=== PATIENT | male | born 1950 | race Hispanic/Latino ===

== ENCOUNTER → 2019-12-30 | Outpatient (CLI) | payer OTHER | END | disposition home or self-care (01) | LOC: OIH 09:19 | PROVIDERS: ATTEND Family Medicine | DX: M25.532 Pain in left wrist (principal) | CPT/HCPCS: 73110 ==

== ENCOUNTER 2024-02-12 08:19 | Day surgery (SDC) | payer OTHER ==
[2024-02-08 13:03] VITALS: BP 155/79; PULSE 47; RESP 14; TEMP 97.5
[2024-02-08 13:07] LABS: BASOPHILS # (AUTO) 0.03 K/uL (0.00-0.20); BASOPHILS % (AUTO) 0.4 % (0.0-5.0); EOSINOPHILS # (AUTO) 0.36 K/uL (0.00-0.70); EOSINOPHILS % (AUTO) 4.5 % (0.0-8.0); HEMATOCRIT 39.5 % (42-54); IMMATURE GRANULOCYTE ABSOLUTE 0.03 K/uL (0-1); LYMPHOCYTES # (AUTO) 1.9 K/uL (1.0-4.8); LYMPHOCYTES % (AUTO) 23.3 % (21.0-51.0); MEAN CORPUSCULAR HEMOGLOBIN 32.4 pg (27.0-33.0); MEAN CORPUSCULAR HGB CONC 33.9 g/dL (32.0-36.0); MEAN CORPUSCULAR VOLUME 95.4 fL (79-99); MONOCYTES # (AUTO) 0.6 K/uL (0.1-1.0); MONOCYTES % (AUTO) 7.7 % (3.0-13.0); NEUTROPHILS # (AUTO) 5.1 K/uL (1.8-7.7); NEUTROPHILS % (AUTO) 63.7 % (40.0-77.0); PLATELET COUNT (AUTO) 276 K/uL (130-400); RED BLOOD CELL COUNT(AUTO) 4.14 MIL/uL (4.50-6.20)
[2024-02-08 13:14] LABS: CREATININE 1.3 mg/dL (0.5-1.3); POTASSIUM 5.1 mmol/L (3.5-5.1)
--- NOTE | 2024-02-08 13:42 | EKG ---
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
--- NOTE | 2024-02-08 16:27 | NUR ---
RE: EKG REPORTED EKG RESULTS TO DR HYATT, NO NEW ORDERS RECEIVED.
[~2024-02-12] VITALS: Ht 170.2 cm; Wt 78.6 kg
[2024-02-12] VITALS (12 sets, daily range): BP systolic 125–159; BP diastolic 55–77; PULSE 49–55; RESP 15–17; TEMP 96.7–97.8
[~2024-02-12 08:19] MED LIST: LISI20TA24 PO; TADA10TA PO
[2024-02-12] MEDS ORDERED: proPOFol 10 MG/ML 20ML VIAL IV ONE (09:41)
[2024-02-12] MEDS ORDERED: rocuRONium bROMide 10MG/1ML 5ML VL ONE (09:41)
[2024-02-12] MEDS ORDERED: LIDOCAINE PF 100MG/5ML (2%) SYRINGE 5ML ONE (09:41)
[2024-02-12] MEDS ORDERED: NEOSTIGMINE METHYLSULFATE 1MG/ML IV ONE (09:41)
[2024-02-12] MEDS ORDERED: GLYCOPYRROLATE 0.2 MG/ML 5 ML VIAL ONE (09:41)
[2024-02-12] MEDS ORDERED: dexaMETHasone SOD PHOSPHATE 10MG/ML 1ML VIAL ONE (09:41)
[2024-02-12] MEDS ORDERED: SUCCINYLCHOLINE CHLORIDE 20 MG/ML 10 ML VIAL ONE (09:41)
[2024-02-12] MEDS ORDERED: ondanSETRON 4MG INJ ONE (09:41)
[2024-02-12] MEDS ORDERED: FENTanyl CITRate PF 50 MCG/1 ML 2ML VIAL ONE (09:42)
[2024-02-12] MEDS ORDERED: MIDAZOLAM HCL 1 MG/ML 2ML VIAL ONE (09:42)
[2024-02-12] MEDS: cefTRIAXone 1G VIAL ONE ×2 (10:24→10:30)
[2024-02-12] MEDS: LACTATED RINGERS 1000ML 1,000 ML IV ONE (10:24)
[2024-02-12] MEDS ORDERED: BACITRACIN 28.4 GM OINT TP ONE (11:09)
[2024-02-12] MEDS ORDERED: PHENAZOpyridine HCL 200 MG TAB 200 MG TABLET PO ONE (12:00)
--- NOTE | 2024-02-12 12:03 | OP ---
DATE OF PROCEDURE: 02/12/2024 PREOPERATIVE DIAGNOSIS: Meatal stenosis, slow stream and urethral stricture. POSTOPERATIVE DIAGNOSIS: Meatal stenosis, slow stream and urethral stricture, fossa navicularis stricture. PROCEDURE PERFORMED: Meatotomy, urethral dilation, cystoscopy. ANESTHESIA: General endotracheal anesthesia. SURGEON: Robina Rosado MD PREOPERATIVE INDICATIONS: This is a 73-year-old gentleman, who is 3 months status post robotic-assisted laparoscopic prostatectomy, who has developed slow urinary stream. His postoperative PSA is undetectable at less than 0.006. Attempts at cystoscopy and catheterization in the office were unsuccessful as the patient had developed a meatal stenosis with possible more distal stricture. He presents today for investigation and treatment. His creatinine on day of surgery was 1.3 with a glomerular filtration rate of 58. Preoperatively, he received Rocephin 1 g intravenously. DESCRIPTION OF PROCEDURE: The patient was brought to the operating room and placed in supine position. Following adequate general endotracheal anesthesia, he was sterilely draped and prepped in the usual fashion in the dorsal lithotomy position. JAIRON hose and Venodyne stockings were placed on his lower extremities bilaterally and all pressure points were padded. The meatus was almost completely fused. Lacrimal duct dilators were needed to probe and find a weakness or opening. Eventually, I was able to negotiate a lacrimal probe through the tip of his penis. This was very gently and gradually dilated with larger lacrimal duct probes until I was able to use Radha sounds. After dilating the patient's urethra and ____ scope and a 19-Maori cystoscopic sheath with 30-degree angle lens in place was passed. The patient was noted to have sequential strictures; however, the bladder neck was opened and there was no bladder neck contracture. Moving into the patient's bladder, both ureteral orifices were seen along the trigone. The urine was somewhat cloudy and this was copiously irrigated and drained. Following this, an incision was made at the meatus using a 15 blade knife. The free edges were oversewn using a running stitch of 4-0 Monocryl. The scope was removed and a 18-Maori coude tipped Avendano catheter was then inserted without difficulty whatsoever. 5 mL were instilled into the balloon and bacitracin ointment was applied to the incision site. This was made at the dorsal location of the meatal glans. The patient tolerated the procedure well and there were no complications. He will be discharged home today with prescriptions for Keflex, Tylenol No. 3 and Pyridium. He is to follow up in 1 week for Avendano catheter removal in the office. TID: [id number] RECEIPT: [id number]
[2024-02-12] MEDS ORDERED: CEPH500B PO (12:15)
[2024-02-12] MEDS ORDERED: ACET-2079 PO (12:15)
[2024-02-12] MEDS ORDERED: PHEN-776 PO (12:16)
== END 2024-02-12 12:35 | disposition home or self-care (01) ==
LOC: DAH 08:19
PROVIDERS: ATTEND Urology
DX: N35.811 Other urethral stricture, male, meatal (principal); I10 Essential (primary) hypertension; K21.9 Gastro-esophageal reflux disease without esophagitis; Z98.890 Other specified postprocedural states; Z79.899 Other long term (current) drug therapy
CPT/HCPCS: 80048; 85025; 36415; 93005; 52281; A6260; J7120 ×2; A4344; C1758; A4340; J3010; J1100; J0330; J3490 ×2; J2003; J0696 ×2; J2250; J2704; J2405; J2710; A4358; A4215; A4213; A4222; A4221; A4663; A4216; A4510; A4223 ×2; A4600